=== PATIENT | female | born 1950 | race Caucasian/White ===

== ENCOUNTER 2023-02-23 22:25 | Emergency (ER) | payer MEDICARE, SELFPAY ==
[2023-02-23 22:26] VITALS: BP 148/68; PULSE 68; RESP 16; TEMP 36.9; O2SAT 95
[2023-02-23 22:57] VITALS: TEMP 36.9
[2023-02-23 23:55] LABS: Basophils Percent Auto 0.4 % (0.2-1.2); Eosinophils Absolute Auto 0.1 K/mm3 (0-0.3); Eosinophils Percent Auto 1.3 % (0-4.4); Hematocrit 33.4 % (37.0-47.0); Immature Granulocyte Absolute 0.03 K/mm3 (0.00-0.031); Immature Granulocyte Percent A 0.3 % (0-0.5); Lymphocytes Percent Auto 11.8 % (18.3-44.2); Mean Corpuscular HGB Conc 29.9 g/dl (32-36); Mean Corpuscular Hemoglobin 24.5 pg (26-34); Mean Corpuscular Volume 81.9 fl (80-100); Mean Platelet Volume 10.8 fl (7.4-10.4); Monocytes Absolute Auto 0.8 K/mm3 (0.1-0.6); Monocytes Percent Auto 8.9 % (2.6-8.5); Neutrophils Absolute Auto 7.2 K/mm3 (1.3-6.7); Neutrophils Percent Auto 77.3 % (45.5-73.1); Platelet Count Result 258 k/mm3 (150-375); Red Blood Count 4.08 M/mm3 (4.2-5.4); Red Cell Distribution Width 15.6 % (11.5-14.5); White Blood Count 9.3 K/mm3 (4.5-10.0)
[2023-02-24 00:06] LABS: INR 0.9; Prothrombin Time 12.9 Seconds (11.1-14.7)
[2023-02-24 00:07] LABS: Partial Thromboplastin Time 33.4 SECONDS (22.3-36.8)
[2023-02-24 00:26] LABS: Alanine Aminotransferase 17 U/L (6-35); Albumin Level 3.9 g/dL (3.5-5.1); Alkaline Phosphatase 107 U/L (38-126); Anion Gap 8 mmol/L (8-16); Aspartate Amino Transferase 27 U/L (14-36); Bilirubin,Total 0.8 mg/dL (0.2-1.3); Blood Urea Nitrogen 13 mg/dL (7-17); CRP 0.5 mg/dL (<1.0); Carbon Dioxide 23 mmol/L (22-30); Chloride 104 mmol/L (98-107); Estimated CRCL calculation 58 ml/min; Estimated Glomerular Filt Rate > 60; Glucose 117 mg/dL (65-110); Magnesium 1.8 mg/dL (1.6-2.3); Potassium 4.1 mmol/L (3.4-5.0); Sodium 135 mmol/L (137-145)
[2023-02-24 00:48] VITALS: BP 135/67; PULSE 60; RESP 18; O2SAT 97
[2023-02-24 00:56] LABS: Erythrocyte Sedimentation Rate 58 mm/hr (0-20)
--- NOTE | 2023-02-24 01:09 | ED.GENADULT ---
HPI - General Adult General Chief complaint: Fever Stated complaint: fever Time Seen by Provider: 02/23/23 23:09 History of Present Illness HPI narrative: patient is 70-year-old female who presents emergency department chief complaint of fever. Patient reports that she had a temperature of a 103 at home and reports that she had a procedure done by pain management on her back today. The patient called the on-call PA who recommended she come to the emergency department for evaluation. The patient did report she took Tylenol and upon arrival to the emergency department is no longer running a fever she is reporting that she has a mild headache and a little bit of discomfort in her back. Related Data Allergies Allergy/AdvReac Type Severity Reaction Status Date / Time hydrochlorothiazide Allergy Cough Verified 02/23/23 22:52 lisinopril Allergy Hives Verified 02/23/23 22:52 Review of Systems Review of Systems: A 10 system review of systems was completed on the patient and is negative except for what is stated in the HPI. Nursing and ancillary documentation was reviewed. Exam Narrative: GENERAL: Well-appearing, well-nourished, and in no acute distress. HEAD: Normocephalic, atraumatic. EYES: PERRLA and EOMI. ENT: Nares clear, no rhinorrhea or epistaxis. Mucous membranes moist. NECK: Supple. CHEST: Clear to auscultation. No respiratory distress. HEART: Regular rate and rhythm. No murmur heard. Normal peripheral pulses. ABDOMEN: Soft, nontender, nondistended, normal active bowel sounds. EXTREMITIES: Normal range of motion. No edema. SKIN: Warm, dry, no rash. he NEURO: No focal deficits. Alert and oriented x3. PSYCH: Normal mood and affect. Course Vital Signs Vital signs: Vital Signs Temperature 36.9 C 02/23/23 22:26 Pulse Rate 68 02/23/23 22:26 Respiratory Rate 16 02/23/23 22:26 Blood Pressure 148/68 H 02/23/23 22:26 Pulse Oximetry 95 02/23/23 22:26 Oxygen Delivery Room Air 02/23/23 22:26 Temperature 36.6 C 02/24/23 01:40 Pulse Rate 60 02/24/23 01:40 Respiratory Rate 21 H 02/24/23 01:40 Blood Pressure 135/67 02/24/23 00:48 Pulse Oximetry 100 02/24/23 01:40 Oxygen Delivery Room Air 02/23/23 22:26 Medical Decision Making MDM Narrative Medical decision making narrative: differential diagnosis includes UTI, his postprocedure infection, COVID, laboratory studies were obtained showed normal white blood cell count lactic acid was normal at 1.0 procalcitonin 0.0 CRP 0.5 sed rate was slightly elevated urinalysis showed 21-50 white blood cells and trace leukocyte esterase. COVID flu RSV were all negative patient was started on Keflex and will be discharged home to follow-up primary care provider Vital Signs Vital Signs: Vital Signs Temperature 36.9 C 02/23/23 22:26 Pulse Rate 68 02/23/23 22:26 Respiratory Rate 16 02/23/23 22:26 Blood Pressure 148/68 H 02/23/23 22:26 Pulse Oximetry 95 02/23/23 22:26 Oxygen Delivery Room Air 02/23/23 22:26 Temperature 36.6 C 02/24/23 01:40 Pulse Rate 60 02/24/23 01:40 Respiratory Rate 21 H 02/24/23 01:40 Blood Pressure 135/67 02/24/23 00:48 Pulse Oximetry 100 02/24/23 01:40 Oxygen Delivery Room Air 02/23/23 22:26 Lab Data 02/23/23 23:48 02/23/23 23:48 Labs: Lab Results 02/23/23 02/24/23 02/24/23 Range/Units 23:48 00:48 01:39 WBC 9.3 (4.5-10.0) K/mm3 RBC 4.08 L (4.2-5.4) M/mm3 Hgb 10.0 L (12.0-15.0) g/dL Hct 33.4 L (37.0-47.0) % MCV 81.9 (80-100) fl MCH 24.5 L (26-34) pg MCHC 29.9 L (32-36) g/dl RDW 15.6 H (11.5-14.5) % Plt Count 258 (150-375) k/mm3 MPV 10.8 H (7.4-10.4) fl Immature Gran % (Auto) 0.3 (0-0.5) % Neut % (Auto) 77.3 H (45.5-73.1) % Lymph % (Auto) 11.8 L (18.3-44.2) % [place] % (Auto) 8.9 H (2.6-8.5) % Eos % (Auto) 1.3 (0-4.4) % Baso % (Auto) 0.
[2023-02-24] MEDS: ACETAMINOPHEN 500 MG TABLET 1000 MG PO (01:18)
[2023-02-24 01:30] LABS: Influenza A QL RT-PCR Negative (Negative); Influenza B QL RT-PCR Negative (Negative); RSV RNA, RT-PCR Negative (Negative); SARS-CoV-2 RNA PCR Negative (Negative)
[2023-02-24 01:40] VITALS: PULSE 60; RESP 21; TEMP 36.6; O2SAT 100
[2023-02-24 01:48] LABS: Appearance Urine Clear (Clear); Bacteria Urine None Seen /hpf; Bilirubin Urine Negative (Negative); Blood Urine Negative (Negative); Color Urine Yellow (Yellow); Glucose Urine UA Negative (Negative); Ketones Urine Negative (Negative); Leukocyte Esterase Ur Trace LEU/UL (Negative); Nitrate Urine Negative (Negative); Non Pathogenic Casts 0-2; Protein Urine 2+ mg/dL (Negative); RBC Urine 0-2 /hpf (0-2); Specific Grav Ur 1.013 (1.001-1.035); Squamous Epithelial Cell Urine Occasional /hpf (Few); Urobilinogen Urine 0.2 mg/dL (<2.0); WBC Urine 21-50 /hpf; pH Urine 7.5 (5.0-9.0)
[2023-02-24 01:56] LABS: Add Urine Microscopic? YES
[2023-02-24] MEDS: CEPHALEXIN 500 MG CAPSULE PO (02:25)
== END 2023-02-24 02:30 | disposition home or self-care (01) ==
PROVIDERS: Emergency Provider Emergency Medicine
DX: N39.0 Urinary tract infection, site not specified (principal); Z20.822 Contact with and (suspected) exposure to COVID-19
CPT/HCPCS: 36415; 80053; 81001; 83605; 83735; 84145; 85025; 85610; 85652; 85730; 86140; 87040; 87086; 87637; 99283; A9270